=== PATIENT | female | born 1955 | race Caucasian/White ===

== ENCOUNTER → 2017-07-21 | Day surgery (SDC) | payer BC ==
[2017-07-20 12:34] VITALS: BMI 19.4
[~2017-07-21] MED LIST: Bupivacaine HCl 0.5%/Epinephrine 1:200,000/PF 30 ml Vial ONE; Bupivacaine PF 0.5% 30 ML VIAL ONE; CEFAZOLIN/Water 2 GM/20 ML SYRINGE ONE; Dexamethasone 20 MG/5 ML VIAL ONE; Fentanyl 100 MCG/2 ML VIAL ONE; Hydrocodone-Acetamin 15 ML UDCUP ONE; Lidocaine 1% PF 5 ML VIAL ONE; Midazolam HCl 2 mg/2 ml Vial ONE; Ondansetron HCl/PF 4 MG/2 ML Vial ONE; PROPOFOL 20 ML ONE; PROPOFOL 200 MG/20 ML VIAL ONE
--- NOTE | 2017-07-21 14:24 | EKG ---
Test Reason : PREOP Blood Pressure : / mmHG Vent. Rate : 063 BPM Atrial Rate : 063 BPM P-R Int : 140 ms QRS Dur : 096 ms QT Int : 460 ms P-R-T Axes : 079 036 063 degrees QTc Int : 470 ms Normal sinus rhythm Normal ECG No previous ECGs available Confirmed by JIGNESH AGUAYO ([id number]) on 07/21/2017 2:23:44 PM Referred By: NGUYỄN Confirmed By:JIGNESH AGUAYO
--- NOTE | 2017-07-21 16:58 | RAD ---
RIGHT WRIST INTRAOPERATIVE FLUOROSCOPY THREE VIEWS 07/21/17 HISTORY: Wrist fracture. FINDINGS/IMPRESSION: Intraoperative fluoroscopy was provided for internal fixation as performed by Dr. Ramos. Spot flu oroscopic images show volar compression plate to transfix the distal radius in anatomic alignment. Fluoro time = 12 seconds. POS: LEVI
--- NOTE | 2017-07-21 18:11 | OP ---
DATE OF PROCEDURE: 07/21/2017 OPERATION: Open reduction internal fixation of right distal radius fracture. PREOPERATIVE DIAGNOSIS: Right distal radius fracture. POSTOPERATIVE DIAGNOSIS: Right distal radius fracture. COMPLICATIONS: None. ESTIMATED BLOOD LOSS: Minimal. SURGEON: Dameon Ramos MD ANESTHESIA: General plus local. IMPLANTS: Synthes distal radius volar locking plate with multiple screws. INDICATIONS: Ms. Eid is a 62-year-old female who fell from a ladder. She fractured her distal ra dius. She was indicated for open reduction and internal fixation of the radius to reduce the fractur e into an anatomic position and provide anatomic healing. Risks have been reviewed including nonunio n, malunion, post-traumatic arthritis, hardware failure, and others. DESCRIPTION OF PROCEDURE: Ms. Eid was identified in the preoperative holding area. Her correct e xtremity was marked. She was carried to the operating room. She was positioned supine. General ane sthesia was induced. A multidisciplinary time-out was performed. The right upper extremity was prep ped and draped in sterile fashion. At this point, we began by a volar approach to the wrist. We dissected down through the subcutaneous tissues to the FCR tendon sheath, which was opened. We then incised the deep aspect of the tendon s anna marie. At this point, we cleared the pronator quadratus from the distal radius. We encountered the fracture site. It was reduced into an anatomic position. We took intraoperative x-ray. At this poi nt, we applied a 3-hole Synthes volar locking plate. We placed multiple locking and nonlocking screw s fixing the plate to the bone and holding our rigid position. At this point, we again took images. We then thoroughly irrigated with copious lavage. 2-0 Vicryl suture and destini were used for the s kin. A sterile dressing was applied. The patient was taken to the recovery room in good condition w ithout complication.
== END ==
LOC: SDC 10:29
PROVIDERS: ATTEND Orthopaedic Surgery
PROC: 0PSH04Z Reposition Right Radius with Internal Fixation Device, Open Approach (ICD-10-PCS; principal; 2017-07-21)
DX: S52.531A Colles' fracture of right radius, initial encounter for closed fracture (principal); E78.00 Pure hypercholesterolemia, unspecified; I10 Essential (primary) hypertension; N39.0 Urinary tract infection, site not specified; F17.210 Nicotine dependence, cigarettes, uncomplicated; Z79.82 Long term (current) use of aspirin; Z79.899 Other long term (current) drug therapy; Z88.2 Allergy status to sulfonamides; Z88.5 Allergy status to narcotic agent; Z88.8 Allergy status to other drugs, medicaments and biological substances
CPT/HCPCS: 76001; 93005; 93010; C1713; J0670; J1100; J2001; J2250; J2405; J2704; J3010; S0020

== ENCOUNTER 2019-10-02 12:30 | Inpatient (IN) | payer OTHER, SELFPAY ==
[2019-10-02] MEDS ORDERED: Magnesium 2 GM/50 ML BAG (IN WATER) ONE (13:07)
[2019-10-02 13:19] LABS: #Basophils 0.1 thou/uL (0.0-0.2); #Eosinphils 0.4 thou/uL (0.0-0.7); #Monocytes 0.2 thou/uL (0.11-0.59); #Neutrophils 8.9 thou/uL (1.40-6.50); %Basophils 0.7 % (0.0-1.0); %Eosinophils 3.7 % (0.0-10.0); %Lymphocytes 9.4 % (21.0-51.0); %Monocytes 1.4 % (0.0-10.0); %Neutrophils 84.7 % (42.0-75.0); Hemoglobin 13.4 g/dL (12.0-16.0); Mean Corpuscular HGB CONC 31.7 g/dL (32.0-36.0); Mean Corpuscular Hemoglobin 30.2 pg (27.0-31.0); Mean Corpuscular Volume 95.2 fL (78.0-98.0); Mean Platelet Volume 7.7 fL (7.4-10.4); Platelet Count 290 thou/uL (130-400); RBC Distribution Width 12.3 % (11.5-14.5); Red Blood Cell (RBC) Count 4.42 mill/uL (4.20-5.40); White Blood Cell (WBC) Count 10.5 thou/uL (4.8-10.8)
[2019-10-02 13:23] LABS: Actual Bicarbonate (HCO3a) 23.3 mEq/L (22-28); Analyzer IN Cardio ER; Base Excess (BEa) -1.7 mEq/L (-2.0 to +3.0); CO2 Tension 40.7 mmHg (35.0-45.0); Calcium, Ionized (arterial) 1.21 mmol/L (1.12-1.30); Carboxyhemoglobin (COHb) 1.1 gm% (0.0-3.0); Hemoglobin (Hb) 13.1 g/dL (12.0-16.0); O2 Tension (PaO2), arterial 73.1 mmHg (> 80.0); Potassium - ABG Lab 4.37 mmol/L (3.70-5.30); pH, Arterial 7.38 (7.35-7.45)
[2019-10-02 13:28] LABS: ALV-art Gradient 132.705 (0-20); Puncture Site LRA
[2019-10-02 13:48] LABS: ALT (SGPT) 13 U/L (8-55); AST (SGOT) 16 U/L (5-34); Albumin 4.4 g/dL (3.4-4.8); Alkaline Phosphatase 59 U/L (40-110); Anion Gap 13 mmol/L (10-20); BUN (Urea Nitrogen) 18 mg/dL (9.8-20.1); Bilirubin, Total Less than 0.2 mg/dL (0.2-1.2); Calc. Creatinine Clearance 0 mL/min (70-130); Calcium 9.1 mg/dL (7.8-10.44); Carbon Dioxide 27 mmol/L (23-31); Chloride 106 mmol/L (98-107); Estimated GFR-MDRD 80; Globulin 2.8 g/dL (2.4-3.5); Glucose 104 mg/dL (80-115); Potassium 4.6 mmol/L (3.5-5.1); Protein, Total 7.2 g/dL (6.0-8.3); Sodium 141 mmol/L (136-145)
--- NOTE | 2019-10-02 14:03 | RAD ---
Exam: Chest one view HISTORY:Shortness of breath. Comparison: 11/05/2010 FINDINGS: Cardiac silhouette: Normal Aorta: Slightly elongated Pulmonary vessels: Normal Costophrenic angles: Clear LUNGS: No masses or consolidation. Pneumothorax: None Osseous abnormalities: None IMPRESSION: No acute cardiopulmonary process.
--- NOTE | 2019-10-02 14:21 | PDOC.HHP ---
Hospitalist HPI - History of Present Illness Dyspnea History of Present Illness: PCP: Dr. Swain ([place], [place]) The patient is a 64-year-old female with a past medical history significant for COPD (on 2 L nasal cannula at home), hypertension, hyperlipidemia and depression presents to the ER via EMS for the above complaint. Patient reports worsening shortness of breath over the past 2 days. She reports that this morning she woke up and felt very short of breath. She reports an associated productive cough, thick yellow sputum. She denies any chest pain, heart palpitations, lower extremity swelling. She denies any known sick contacts, stating that she a homebody. She reports feeling constipated, stating that her last bowel movement was 3 days ago. She admits to passing flatus. Denies abdominal pain, vomiting, diarrhea. Denies any urinary symptoms. EMS was called. Upon arrival, she was found to be in respiratory distress with an O2 saturation in the 80s. She was placed on nonrebreather, given Solu-Medrol and 4 puffs from her MDI inhaler. ED Course: VITAL SIGNS TueOct 02, 2019 12:31 JOHNNY Almendarez Rachel Pulse: 107, O2 sat: 95 on (Non Rebreather), Time: 10/02/2019 12:31. VITAL SIGNS TueOct 02, 2019 12:40 JOHNNY Almendarez Rachel BP: 168/99, Pulse: 96, Resp: 24, Temp: 98.2, Time: 10/02/2019 12:40. VITAL SIGNS TueOct 02, 2019 13:56 JOHNNY Almendarez Rachel O2 sat: 98 on (2L Oxygen), Time: 10/02/2019 13:56. VITAL SIGNS TueOct 02, 2019 13:15 JOHNNY Almendarez Rachel O2 sat: 99 on (4L Oxygen), Time: 10/02/2019 13:15. VITAL SIGNS TueOct 02, 2019 14:00 JOHNNY Almendarez Rachel BP: 150/83 (Sitting), Pulse: 86, Resp: 21 (Non-Labored), Temp: 97.6 (Oral), Pain : 0, O2 sat: 98 on (2L Oxygen), Time: 10/02/2019 14:00. Levaquin in 5 % dextrose 750 mg IV Piggy Back Ordered 14:13 10/02/2019 DuoNeb 3 mL Nebulize Given 13:25 10/02/2019 magnesium sulfate in water 2 g IV Piggy Back Given 13:23 10/02/2019 Hospitalist ROS - Review of Systems Constitutional: denies: fever, chills Respiratory: reports: cough, shortness of breath, sputum Cardiovascular: denies: chest pain, palpitations, edema Gastrointestinal: reports: constipation. denies: nausea, vomiting, abdominal pain, diarrhea Genitourinary: denies: dysuria Skin: denies: rash, bruising Neurological: denies: weakness, numbness, change in speech, confusion All other systems reviewed; all pertinent +/- noted in HPI/Subj - Medication Medications: Lipitor TueOct 02, 2019 13:00 JOHNNY Almendarez Rachel tablet : Strength - 10 mg : ORAL Patient Dose: unk. aspirin oral TueOct 02, 2019 13:00 JOHNNY Almendarez Rachel tablet : Strength - 81 mg : ORAL Patient Dose: 1 tab(s) Oral once a day. Xanax TueOct 02, 2019 13:01 JOHNNY Almendarez Rachel tablet : Strength - 1 mg : ORAL Patient Dose: 1 tab(s) Oral 2 times a day. Lexapro TueOct 02, 2019 13:02 JOHNNY Almendarez Rachel tablet : Strength - 5 mg : ORAL Patient Dose: unk. amLODIPine TueOct 02, 2019 13:03 JOHNNY Almendarez Rachel tablet : Strength - 2.5 mg : ORAL Patient Dose: unk. Allergies: promethazine, prochloperazine, sulfa Hospitalist History - Past Medical History Source: patient, RN notes reviewed Other Medical History: MEDICAL HISTORY TueOct 02, 2019 12:51 JOHNNY Almendarez Rachel Past medical history includes history of hyperlipidemia, high cholesterol, Past medical history includes history of hypertension, which has been treated, Patient is compliant, Past medical history includes pulmonary disease, chronic obstructive pulmonary disease ARTHRITIS OF NECK - . verified 10/02/19. FEMALE SURGICAL HISTORY TueOct 02, 2019 12:51 JOHNNY Almendarez Rachel 3 L FOOT SURGERY, Surgical history of hysterectomy. verified 10/02/19. PSYCHIATRIC HISTORY TueOct 02, 2019 12:51 JOHNNY Almendarez Rachel Notes: DENIES AT THIS TIME. verified 10/02/19. SOCIAL HISTORY TueOct 02, 2019 12:51 JOHNNY Almendarez, Nury Patient denies alcohol use, Patient denies drug use, Patient currently uses tobacco, smokes cigarettes, daily, Patient has smoked for 30 years, Patient smokes 1 pack per day, Patient denies alcohol use, Patient denies drug use, Patient currently uses tobacco, smokes cigarettes, daily, Patient smokes less than 1/2 pack day. FAMILY HISTORY: Non contributory for cardiac - Exam General Appearance: NAD General - other findings: Somnolent, non toxic appearing Eye: anicteric sclera ENT: normocephalic atraumatic Neck: supple, no JVD, no lymphadenopathy Heart: RRR, no murmur, no gallops, no rubs, normal peripheral pulses, irregular Respiratory - other findings: diminished BLL, expiratory wheezes Gastrointestinal: soft, non-tender, normal bowel sounds, no bruit, no guarding, no rigidity, distended Extremities: no cyanosis, no edema Skin: negative: no rashes Neurological: normal sensation to touch, no weakness, no focal deficits Psychiatric: normal affect, A&O x 3 Hospitalist Results - Labs Result Diagrams: 10/02/19 13:00 10/02/19 13:00 Lab results: WBC 10.5 thou/uL (4.8-10.8) 10/02/19 13:00 Hgb 13.4 g/dL (12.0-16.0) 10/02/19 13:00 Hct 42.1 % (36.0-47.0) 10/02/19 13:00 MCV 95.2 fL (78.0-98.0) 10/02/19 13:00 Plt Count 290 thou/uL (130-400) 10/02/19 13:00 Neutrophils % 84.7 % (42.0-75.0) H 10/02/19 13:00 ABG pH 7.38 (7.35-7.45) 10/02/19 13:20 ABG pCO2 40.7 mmHg (35.0-45.0) 10/02/19 13:20 ABG pO2 73.1 mmHg (> 80.0) 10/02/19 13:20 Sodium 141 mmol/L (136-145) 10/02/19 13:00 Potassium 4.6 mmol/L (3.5-5.1) 10/02/19 13:00 Chloride 106 mmol/L (98-107) 10/02/19 13:00 Carbon Dioxide 27 mmol/L (23-31) 10/02/19 13:00 BUN 18 mg/dL (9.8-20.1) 10/02/19 13:00 Creatinine 0.73 mg/dL (0.6-1.1) 10/02/19 13:00 Glucose 104 mg/dL (80-115) 10/02/19 13:00 Calcium 9.1 mg/dL (7.8-10.44) 10/02/19 13:00 Total Bilirubin Less than 0.2 mg/dL (0.2-1.2) L 10/02/19 13:00 AST 16 U/L (5-34) 10/02/19 13:00 ALT 13 U/L (8-55) 10/02/19 13:00 Alkaline Phosphatase 59 U/L (40-110) 10/02/19 13:00 Serum Total Protein 7.2 g/dL (6.0-8.3) 10/02/19 13:00 Albumin 4.4 g/dL (3.4-4.8) 10/02/19 13:00 - EKG Interpretation EK lead EKG interpreted by Emergency Department Physician at time of study, 12 lead EKG shows normal sinus rhythm, Rate (beats per minute): 96, T waves normal , Howard normal. - Radiology Interpretation Chest x-ray Status: report reviewed by me Additional Comment: No acute cardiopulmonary process. Hospitalist H&P A/P - Problem (1) COPD exacerbation Code(s): J44.1 - CHRONIC OBSTRUCTIVE PULMONARY DISEASE W (ACUTE) EXACERBATION Status: Acute Assessment and Plan: Admit to the telemetry floor, inpatient status. Expected length of stay greater than 2 midnights. Patient presented hypertensive, tachypneic, tachycardic, and hypoxic with SPO2 in the 80s, afebrile per EMS. EKG normal sinus rhythm, no ST elevation. Checks x-ray negative for any acute cardiopulmonary process. pH 7.38, CO2 40.7, PO2 73.1, HCO3 23.3. Patient denies having any chest pain or LE swelling. Wells PE score 1.5, low risk. Symptoms improved with steroids, duo nebs, magnesium. On exam, patient speaking in complete sentences, 3 L nasal cannula with SPO2 mid 90s and normal pulse. We will continue Solu-Medrol, Levaquin, duo nebs. Will add as needed cough medicines. COVID preadmission screening pending. (2) Acute respiratory failure with hypoxia Code(s): J96.01 - ACUTE RESPIRATORY FAILURE WITH HYPOXIA Status: Acute Assessment and Plan: Likely secondary to problem #1. (3) Tobacco abuse Code(s): Z72.0 - TOBACCO USE Status: Chronic Assessment and Plan: Patient has half pack per day. Unwilling to quit. Will start NRT therapy. Office Engineer on tobacco cessation. (4) HTN (hypertension) Code(s): I10 - ESSENTIAL (PRIMARY) HYPERTENSION Status: Chronic Assessment and Plan: Patient presented hypertensive. We will start home dose of amlodipine when reconciled by nursing. We will continue to monitor BP. - Plan Plan: Lovenox for DVT prophylaxis. No GI prophylaxis. Full code. Designated medical decision-maker NANI ABDI, Relationship to patient , Phone number: [phone]. Discussed case with Dr. Gutierrez.
[2019-10-02] MEDS ORDERED: Bisacodyl 5 MG TAB PO PRN (14:41)
[2019-10-02] MEDS ORDERED: Acetaminophen 650 MG Suppository PR PRN (14:41)
[2019-10-02] MEDS ORDERED: Acetaminophen 325 MG TAB PO PRN (14:41)
[2019-10-02] MEDS ORDERED: Calcium Carbonate 500 MG ChewTAB PO PRN (14:41)
[2019-10-02] MEDS ORDERED: Senokot S 8.6-50 MG TAB PO PRN (14:41)
[2019-10-02] MEDS ORDERED: Ondansetron ODT 4 MG TAB PO PRN (14:41)
[2019-10-02] MEDS ORDERED: Ondansetron PF 4 MG/2 ML Vial IVP PRN (14:41)
--- NOTE | 2019-10-02 14:49 | PDOC.HHP ---
Hospitalist HPI - History of Present Illness dyspnea History of Present Illness: PCP: Dr. Swain ([place], [place]) The patient is a 64-year-old female ED Course: VITAL SIGNS TueOct 02, 2019 12:31 JOHNNY Almendarez Rachel Pulse: 107, O2 sat: 95 on (Non Rebreather), Time: 10/02/2019 12:31. VITAL SIGNS TueOct 02, 2019 12:40 JOHNNY Almendarez Rachel BP: 168/99, Pulse: 96, Resp: 24, Temp: 98.2, Time: 10/02/2019 12:40. VITAL SIGNS TueOct 02, 2019 13:56 JOHNNY Almendarez Rachel O2 sat: 98 on (2L Oxygen), Time: 10/02/2019 13:56. VITAL SIGNS TueOct 02, 2019 13:15 JOHNNY Almendarez Rachel O2 sat: 99 on (4L Oxygen), Time: 10/02/2019 13:15. VITAL SIGNS TueOct 02, 2019 14:00 JOHNNY Almendarez Rachel BP: 150/83 (Sitting), Pulse: 86, Resp: 21 (Non-Labored), Temp: 97.6 (Oral), Pain : 0, O2 sat: 98 on (2L Oxygen), Time: 10/02/2019 14:00. Medications administered: Levaquin in 5 % dextrose 750 mg IV Piggy Back Ordered 14:13 10/02/2019 DuoNeb 3 mL Nebulize Given 13:25 10/02/2019 magnesium sulfate in water 2 g IV Piggy Back Given 13:23 10/02/2019 Hospitalist History - Past Medical History Source: patient, RN notes reviewed Other Medical History: MEDICAL HISTORY TueOct 02, 2019 12:51 JOHNNY Almendarez Rachel Past medical history includes history of hyperlipidemia, high cholesterol, Past medical history includes history of hypertension, which has been treated, Patient is compliant, Past medical history includes pulmonary disease, chronic obstructive pulmonary disease ARTHRITIS OF NECK - . verified 10/02/19. FEMALE SURGICAL HISTORY TueOct 02, 2019 12:51 JOHNNY Almendarez Rachel 3 L FOOT SURGERY, Surgical history of hysterectomy. verified 10/02/19. PSYCHIATRIC HISTORY TueOct 02, 2019 12:51 JOHNNY Almendarez Rachel Notes: DENIES AT THIS TIME. verified 10/02/19. SOCIAL HISTORY TueOct 02, 2019 12:51 JOHNNY Almendarez, Nury Patient denies alcohol use, Patient denies drug use, Patient currently uses tobacco, smokes cigarettes, daily, Patient has smoked for 30 years, Patient smokes 1 pack per day, Patient denies alcohol use, Patient denies drug use, Patient currently uses tobacco, smokes cigarettes, daily, Patient smokes less than 1/2 pack day. FAMILY HISTORY Hospitalist Results - Labs Result Diagrams: 10/02/19 13:00 10/02/19 13:00 Lab results: WBC 10.5 thou/uL (4.8-10.8) 10/02/19 13:00 Hgb 13.4 g/dL (12.0-16.0) 10/02/19 13:00 Hct 42.1 % (36.0-47.0) 10/02/19 13:00 MCV 95.2 fL (78.0-98.0) 10/02/19 13:00 Plt Count 290 thou/uL (130-400) 10/02/19 13:00 Neutrophils % 84.7 % (42.0-75.0) H 10/02/19 13:00 ABG pH 7.38 (7.35-7.45) 10/02/19 13:20 ABG pCO2 40.7 mmHg (35.0-45.0) 10/02/19 13:20 ABG pO2 73.1 mmHg (> 80.0) 10/02/19 13:20 Sodium 141 mmol/L (136-145) 10/02/19 13:00 Potassium 4.6 mmol/L (3.5-5.1) 10/02/19 13:00 Chloride 106 mmol/L (98-107) 10/02/19 13:00 Carbon Dioxide 27 mmol/L (23-31) 10/02/19 13:00 BUN 18 mg/dL (9.8-20.1) 10/02/19 13:00 Creatinine 0.73 mg/dL (0.6-1.1) 10/02/19 13:00 Glucose 104 mg/dL (80-115) 10/02/19 13:00 Calcium 9.1 mg/dL (7.8-10.44) 10/02/19 13:00 Total Bilirubin Less than 0.2 mg/dL (0.2-1.2) L 10/02/19 13:00 AST 16 U/L (5-34) 10/02/19 13:00 ALT 13 U/L (8-55) 10/02/19 13:00 Alkaline Phosphatase 59 U/L (40-110) 10/02/19 13:00 Serum Total Protein 7.2 g/dL (6.0-8.3) 10/02/19 13:00 Albumin 4.4 g/dL (3.4-4.8) 10/02/19 13:00
[2019-10-02 15:08] LABS: SARS-CoV-2 NAA Rapid Test Not Detected (NotDetected)
[2019-10-02 15:08] LABS: Bacteria/HPF None Seen HPF (None Seen); Bilirubin Negative (Negative); Blood, Urine Negative (Negative); Clarity Clear (Clear); Glucose, Urine (Dipstick) Normal (Negative); Ketone, Urine Negative (Negative); Leukocyte Negative Leu/uL (Negative); Nitrite Negative (Negative); Protein, Urine (Dipstick) Negative (Neg-Trace); RBC/HPF 0-3 HPF (0-3); Specific Gravity, Urine 1.013 (1.002-1.036); Squamous Epithelial 0-3 HPF (0-3); Urobilinogen Normal mg/dL (Less than 2); WBC/HPF 0-3 HPF (0-3); pH, Urine 5.5 (5.0-9.0)
[2019-10-02 16:44] VITALS: BMI 17.9
[2019-10-02] MEDS: Nicotine 14 MG PATCH TD SCH (16:46)
[2019-10-02] MEDS: methylPREDNISolone Sod Succ 40 MG VIAL IVP SCH (17:23)
[2019-10-02] MEDS ORDERED: ALPRAZolam 1 MG TAB PO SCH (17:45)
[2019-10-02] MEDS: Guaifenesin DM 100-10/5 ML UDCUP PO PRN (19:24)
[2019-10-02] MEDS: ALPRAZolam 1 MG TAB PO SCH (20:41)
[2019-10-02] MEDS: Atorvastatin Calcium 40 MG TAB PO SCH (20:41)
[2019-10-02 21:47] LABS: Amphetamine Not Detected (NotDetected); Barbiturates Screen Not Detected (NotDetected); Benzodiazepine Screen Detected (NotDetected); Cocaine Metabolite Screen Not Detected (NotDetected); Medtox Control Line Valid? VALID (VALID); Medtox Reader # READER 4; Methadone Not Detected (NotDetected); Methamphetamine Not Detected (NotDetected); Opiate Screen Detected (NotDetected); Oxycodone Screen Not Detected (NotDetected); Phencyclidine (PCP) Not Detected (NotDetected); THC/Cannabinoid Screen Not Detected (NotDetected); Tricyclic Screen Not Detected (NotDetected)
[2019-10-02] MEDS: Benzonatate 100 MG CAP PO PRN (22:53)
--- NOTE | 2019-10-02 23:58 | CON ---
DATE OF CONSULTATION: 10/02/2019 TECHNICAL SOLUTIONS ENGINEER: Dr. uGtierrez from the Hospitalist Group. REASON FOR CONSULTATION: COPD exacerbation. HISTORY OF PRESENT ILLNESS: This patient is a 64-year-old female, who lives near [place], [place]. She has severe COPD by history. She is on home oxygen intermittently. She has had several hospitalizations in the last several months. Beforehand, she was using a hospital in [place]. She comes in with 2-day history of increasing shortness of breath. She is continuing to smoke at least a half pack cigarettes per day. She is using a Ventolin metered-dose inhaler at home. She also uses albuterol as needed. Her main complaint is shortness of breath. She did not have much in the way of cough. PAST MEDICAL HISTORY: 1. Chronic obstructive pulmonary disease. 2. Hyperlipidemia. 3. Hypertension. 4. Osteoarthritis. PAST SURGICAL HISTORY: 1. Left foot surgery. 2. Hysterectomy. SOCIAL HISTORY: Has smoked at least a pack per day since she was a teenager. Says she has cut to half pack per day. Does not consume alcohol. Does not use illicit drugs. OUTPATIENT MEDICATIONS: 1. Soma. 2. Albuterol. 3. Escitalopram. 4. Atorvastatin. 5. Norvasc. 6. Oxybutynin. 7. Hydrocodone/acetaminophen. 8. Xanax. 9. Aspirin. REVIEW OF SYSTEMS: No fever, chills, nausea, vomiting, hematemesis, melena, hematochezia, hematuria, or dysuria. PHYSICAL EXAMINATION: VITAL SIGNS: Temperature 98.2, pulse 107, respirations 24, O2 saturation 94% on 3 L, and blood pressure 148/83. GENERAL: She is a 64-year-old female, who appears at least 20 years older than her stated age. HEENT: Pupils reactive. Sclerae anicteric. Oropharynx clear. NECK: No adenopathy or JVD. LUNGS: She has mild expiratory wheezing. She is not using any accessory muscles of respiration. CARDIAC: S1 and S2, regular without audible murmur. ABDOMEN: Soft and nontender. EXTREMITIES: No clubbing, cyanosis, or edema. She has severe muscle wasting throughout. LABORATORY DATA: White blood cell count 10.5, hematocrit 42.1, and platelet count 290. PH 7.38, pCO2 of 40, pO2 of 73, that was on 3 L. Sodium 141, potassium 4.6, chloride 106, CO2 of 27, BUN 18, creatinine 0.7, and glucose 104. COVID test was negative. Chest x-ray shows hyperinflation without evidence of mass, effusion, or infiltrate. ASSESSMENT: 1. Chronic obstructive pulmonary disease with exacerbation. 2. Chronic hypoxemic respiratory failure. 3. No evidence of hypercapnia. PLAN: The current plan of antibiotics, nebulization treatments, and IV steroids is appropriate. The patient has been cautioned to quit smoking. She needs to follow up with a supervisor pit and auxiliaries as an outpatient and have PFTs to further characterize the severity of her illness. She needs to continue low-flow oxygen to keep O2 sats around 90% to 92%. The patient was warned that she will not improve if she continues to smoke. Thank you for the referral. Job ID: [id number]
[2019-10-03] MEDS: methylPREDNISolone Sod Succ 40 MG VIAL IVP SCH ×5 (00:05→20:36)
[2019-10-03] MEDS: Guaifenesin DM 100-10/5 ML UDCUP PO PRN (04:05)
[2019-10-03 04:25] LABS: #Lymphocytes 0.7 thou/uL (1.20-3.40); #Monocytes 0.2 thou/uL (0.11-0.59); #Neutrophils 11.8 thou/uL (1.40-6.50); %Lymphocytes 5.7 % (21.0-51.0); %Monocytes 1.2 % (0.0-10.0); %Neutrophils 93.1 % (42.0-75.0); Mean Corpuscular HGB CONC 31.5 g/dL (32.0-36.0); Mean Corpuscular Hemoglobin 29.7 pg (27.0-31.0); Mean Corpuscular Volume 94.2 fL (78.0-98.0); Platelet Count 289 thou/uL (130-400); RBC Distribution Width 12.5 % (11.5-14.5); Red Blood Cell (RBC) Count 4.04 mill/uL (4.20-5.40); White Blood Cell (WBC) Count 12.7 thou/uL (4.8-10.8)
[2019-10-03 04:37] LABS: Anion Gap 13 mmol/L (10-20); BUN (Urea Nitrogen) 23 mg/dL (9.8-20.1); Calc. Creatinine Clearance 59 mL/min (70-130); Calcium 8.8 mg/dL (7.8-10.44); Carbon Dioxide 21 mmol/L (23-31); Chloride 108 mmol/L (98-107); Estimated GFR-MDRD 70; Glucose 223 mg/dL (80-115); Potassium 4.3 mmol/L (3.5-5.1); Sodium 138 mmol/L (136-145)
[2019-10-03] MEDS: Benzonatate 100 MG CAP PO PRN ×2 (05:10→14:46)
--- NOTE | 2019-10-03 09:49 | PRG ---
DATE OF SERVICE: 10/03/2019 SUBJECTIVE: She feels better, has no complaints of better breathing. OBJECTIVE: VITAL SIGNS: Temperature 98.7, pulse , respirations 20, and O2 saturation 97% on 3 L. HEENT: Clear. NECK: No JVD. LUNGS: No audible wheezing currently. CARDIAC: S1 and S2. Regular. ABDOMEN: Soft. EXTREMITIES: No edema. LABORATORY DATA: White blood cell count 12.7, hematocrit 38, and platelet count 289. Sodium 138, potassium 4.3, chloride 108, CO2 of 21, BUN 23, creatinine 0.8, glucose 223. ASSESSMENT: 1. Chronic obstructive pulmonary disease with exacerbation. 2. Tobacco abuse. PLAN: Steroids, nebs, antibiotics, and smoking cessation. Likely stable for discharge by tomorrow. Job ID: [id number]
[2019-10-03] MEDS: Oxybutynin ER 5 MG TAB PO SCH (09:51)
[2019-10-03] MEDS: Escitalopram Oxalate 20 mg Tablet PO SCH (09:51)
[2019-10-03] MEDS: Amlodipine 10 MG TAB PO SCH (09:51)
[2019-10-03] MEDS: ALPRAZolam 1 MG TAB PO SCH ×2 (09:51→20:36)
[2019-10-03] MEDS: Enoxaparin Sodium 40 MG/0.4 ML SYRINGE SC SCH (09:51)
--- NOTE | 2019-10-03 13:36 | PDOC.HOSPP ---
- Subjective Encounter Date: 10/03/19 Subjective: The patient is feeling better today. Her respiratory status is improving. - Objective Vital Signs & Weight: Vital Signs (12 hours) Temp Pulse Resp BP BP Pulse Ox 10/03/19 11:39 88 18 104/62 94 L 10/03/19 09:51 94 128/66 10/03/19 09:46 98.6 F 99 20 128/66 94 L 10/03/19 07:25 97 10/03/19 07:22 98 20 97 10/03/19 04:18 110 H 16 100 10/03/19 03:42 98.7 F 86 20 101/66 96 Weight Weight 118 lb 5 oz I&O: 10/02/19 10/03/19 10/04/19 06:59 06:59 06:59 Intake Total 480 550 Output Total 400 Balance 480 150 Result Diagrams: 10/03/19 03:28 10/03/19 03:28 Hospitalist ROS - Medication Medications: Active Medications Generic Name Dose Route Start Last Admin Trade Name Freq PRN Reason Stop Dose Admin Albuterol/Ipratropium 3 ml 10/02/19 19:00 10/03/19 07:22 Duoneb NEB 3 ml [id number] ELISABETH Administration Albuterol/Ipratropium 3 ml 10/02/19 14:38 10/03/19 04:18 Duoneb NEB 3 ml Q4H PRN Administration SOB &/or Wheezing Alprazolam 1 mg 10/02/19 21:00 10/03/19 09:51 Xanax PO 1 mg BID ELISABETH Administration Amlodipine Besylate 10 mg 10/03/19 09:00 10/03/19 09:51 Norvasc PO 10 mg DAILY ELISABETH Administration Atorvastatin Calcium 40 mg 10/02/19 21:00 10/02/19 20:41 Lipitor PO 40 mg HS ELISABETH Administration Benzonatate 100 mg 10/02/19 14:47 10/03/19 05:10 Tessalon PO 100 mg TIDPRN PRN Administration Cough Bisacodyl 10 mg 10/02/19 14:41 10/02/19 21:22 Dulcolax PO 10 mg DAILYPRN PRN Administration Constipation Enoxaparin Sodium 40 mg 10/03/19 09:00 10/03/19 09:51 Lovenox SC 40 mg 0900 ELISABETH Administration Escitalopram Oxalate 20 mg 10/03/19 09:00 10/03/19 09:51 Lexapro PO 20 mg DAILY ELISABETH Administration Guaifenesin/Dextromethorphan 15 ml 10/02/19 14:41 10/03/19 04:05 Robitussin Dm PO 15 ml Q4H PRN Administration Cough Methylprednisolone Sodium Succinate 40 mg 10/02/19 18:00 10/03/19 11:57 Solu-Medrol IVP 40 mg Q6HR ELISABETH Administration Nicotine 14 mg 10/02/19 15:00 10/02/19 16:46 Nicoderm Patch TD Not Given Q24HR ELISABETH Oxybutynin Chloride 10 mg 10/03/19 09:00 10/03/19 09:51 Ditropan Xl PO 10 mg DAILY ELISABETH Administration Senna/Docusate Sodium 2 tab 10/02/19 14:41 10/02/19 17:23 Senokot S PO 2 tab BID PRN Administration Constipation - Exam General Appearance: awake alert ENT: normocephalic atraumatic Neck: supple, no JVD Heart: RRR Respiratory: normal chest expansion, no tachypnea Neurological: cranial nerve grossly intact, no focal deficits Hosp A/P (1) Acute respiratory failure with hypoxia Code(s): J96.01 - ACUTE RESPIRATORY FAILURE WITH HYPOXIA Status: Acute (2) COPD exacerbation Code(s): J44.1 - CHRONIC OBSTRUCTIVE PULMONARY DISEASE W (ACUTE) EXACERBATION Status: Acute (3) HTN (hypertension) Code(s): I10 - ESSENTIAL (PRIMARY) HYPERTENSION Status: Chronic (4) Tobacco abuse Code(s): Z72.0 - TOBACCO USE Status: Chronic - Plan Clinically improving. Continue nebulized bronchodilator treatments, antibiotics, corticosteroids. Continue supplemental oxygen as needed. Lovenox for DVT prophylaxis.
[2019-10-03] MEDS: Nicotine 14 MG PATCH TD SCH (14:46)
[2019-10-03] MEDS: Atorvastatin Calcium 40 MG TAB PO SCH (20:36)
[2019-10-04] MEDS: Benzonatate 100 MG CAP PO PRN (00:16)
[2019-10-04] MEDS: methylPREDNISolone Sod Succ 40 MG VIAL IVP SCH ×3 (03:42→14:48)
--- NOTE | 2019-10-04 10:09 | PRG ---
DATE OF SERVICE: 10/04/2019 SUBJECTIVE: The patient is doing reasonably well without complaint. She is little scared to go home. OBJECTIVE: VITAL SIGNS: Temperature 98.5, pulse 80, respirations 16, O2 sat 93% on room air, blood pressure 107/70. HEENT: Unremarkable. NECK: No adenopathy or JVD. CHEST: Clear without wheezing. CARDIAC: S1, S2. Regular. ABDOMEN: Soft. EXTREMITIES: No edema. ASSESSMENT: Chronic obstructive pulmonary disease exacerbation. PLAN: Would stop antibiotics after 7 days and wean steroids over about 2 weeks. She should continue DuoNeb at home. Additionally, I would put her on either Dulera or Symbicort with that. She has been cautioned not to smoke. She can follow up in my office in about 4 to 6 weeks. Job ID: [id number]
[2019-10-04 10:26] LABS: #Lymphocytes 0.6 thou/uL (1.20-3.40); #Monocytes 0.3 thou/uL (0.11-0.59); #Neutrophils 15.5 thou/uL (1.40-6.50); %Eosinophils 0.2 % (0.0-10.0); %Lymphocytes 3.5 % (21.0-51.0); %Monocytes 1.6 % (0.0-10.0); %Neutrophils 94.7 % (42.0-75.0); Hemoglobin 12.1 g/dL (12.0-16.0); Mean Corpuscular HGB CONC 31.5 g/dL (32.0-36.0); Mean Corpuscular Hemoglobin 29.8 pg (27.0-31.0); Mean Corpuscular Volume 94.8 fL (78.0-98.0); Mean Platelet Volume 8.1 fL (7.4-10.4); Platelet Count 290 thou/uL (130-400); RBC Distribution Width 12.5 % (11.5-14.5); Red Blood Cell (RBC) Count 4.07 mill/uL (4.20-5.40); White Blood Cell (WBC) Count 16.4 thou/uL (4.8-10.8)
[2019-10-04] MEDS: Amlodipine 10 MG TAB PO SCH (10:35)
[2019-10-04] MEDS: Escitalopram Oxalate 20 mg Tablet PO SCH (10:36)
[2019-10-04] MEDS: ALPRAZolam 1 MG TAB PO SCH (10:37)
[2019-10-04] MEDS: Oxybutynin ER 5 MG TAB PO SCH (10:37)
[2019-10-04 10:39] LABS: Anion Gap 15 mmol/L (10-20); BUN (Urea Nitrogen) 28 mg/dL (9.8-20.1); Calc. Creatinine Clearance 65 mL/min (70-130); Calcium 9.1 mg/dL (7.8-10.44); Carbon Dioxide 24 mmol/L (23-31); Chloride 103 mmol/L (98-107); Estimated GFR-MDRD 79; Glucose 226 mg/dL (80-115); Sodium 138 mmol/L (136-145)
[2019-10-04] MEDS: Enoxaparin Sodium 40 MG/0.4 ML SYRINGE SC SCH (10:41)
[2019-10-04 18:26] VITALS: BP 106/73; TEMP 98.3
[2019-10-04] MEDS: Nicotine 14 MG PATCH TD SCH (18:36)
== END 2019-10-04 19:18 | disposition home or self-care (01) | DRG 189 ==
LOC: ERS 12:30 → 2NO 16:20
PROVIDERS: ADMIT Internal Medicine; ATTEND Internal Medicine
DX: J96.01 Acute respiratory failure with hypoxia (principal); J44.1 Chronic obstructive pulmonary disease with (acute) exacerbation; Z20.828 Contact with and (suspected) exposure to other viral communicable diseases; I10 Essential (primary) hypertension; E78.5 Hyperlipidemia, unspecified; F32.9 Major depressive disorder, single episode, unspecified; M19.90 Unspecified osteoarthritis, unspecified site; F17.210 Nicotine dependence, cigarettes, uncomplicated; Z88.2 Allergy status to sulfonamides; Z88.8 Allergy status to other drugs, medicaments and biological substances; Z79.82 Long term (current) use of aspirin; Z90.710 Acquired absence of both cervix and uterus
CPT/HCPCS: 36415; 71045; 80048; 80053; 80306; 81001; 82805; 84484; 85025; 90471; 90732; 93005; 94640; 96365; 96366; 96367; G0009; J1650; J1956; J2920; J3475; J7620; U0002

== ENCOUNTER 2019-11-25 19:05 | Emergency (ER) | payer OTHER, SELFPAY ==
[2019-11-25] MEDS ORDERED: Albuterol 200 PUFF (6.7GM INHALER) ONE (19:43)
--- NOTE | 2019-11-25 19:55 | RAD ---
Portable frontal chest radiograph: 11/25/2019 COMPARISON: 10/02/2019 HISTORY: Shortness of breath and hypoxia FINDINGS: There is increased linear interstitial density with pulmonary hyperinflation, consistent wi th COPD. There is a questionable small nodule versus confluent of osseous shadows within the left upper lobe region projecting between the fourth and fifth posterior left ribs. No pneumothorax or pleural fluid is seen and there is no focal consolidation or alveolar edema. IMPRESSION: Interstitial prominence and pulmonary hyperinflation suggesting COPD. Questionable nodule versus artifact within the left upper lobe for which follow-up PA and lateral imaging of the chest is advised. CODE T Code lung nodule
[2019-11-25 19:56] LABS: #Eosinphils 0.6 thou/uL (0.0-0.7); #Lymphocytes 1.3 thou/uL (1.20-3.40); #Monocytes 0.2 thou/uL (0.11-0.59); #Neutrophils 6.8 thou/uL (1.40-6.50); %Basophils 0.5 % (0.0-1.0); %Eosinophils 6.4 % (0.0-10.0); %Lymphocytes 14.1 % (21.0-51.0); %Monocytes 2.5 % (0.0-10.0); %Neutrophils 76.4 % (42.0-75.0); Hemoglobin 14.1 g/dL (12.0-16.0); Mean Corpuscular HGB CONC 33.6 g/dL (32.0-36.0); Mean Corpuscular Hemoglobin 31.1 pg (27.0-31.0); Mean Corpuscular Volume 92.7 fL (78.0-98.0); Mean Platelet Volume 7.7 fL (7.4-10.4); Platelet Count 268 thou/uL (130-400); RBC Distribution Width 12.7 % (11.5-14.5); Red Blood Cell (RBC) Count 4.54 mill/uL (4.20-5.40); White Blood Cell (WBC) Count 8.9 thou/uL (4.8-10.8)
[2019-11-25 20:08] LABS: ALT (SGPT) 12 U/L (8-55); AST (SGOT) 15 U/L (5-34); Albumin 4.2 g/dL (3.4-4.8); Alkaline Phosphatase 61 U/L (40-110); Anion Gap 12 mmol/L (10-20); BUN (Urea Nitrogen) 17 mg/dL (9.8-20.1); Bilirubin, Total 0.2 mg/dL (0.2-1.2); Calc. Creatinine Clearance 0 mL/min (70-130); Calcium 9.2 mg/dL (7.8-10.44); Carbon Dioxide 26 mmol/L (23-31); Chloride 108 mmol/L (98-107); Estimated GFR-MDRD 90; Globulin 2.9 g/dL (2.4-3.5); Glucose 117 mg/dL (80-115); Potassium 3.9 mmol/L (3.5-5.1); Protein, Total 7.1 g/dL (6.0-8.3); Sodium 142 mmol/L (136-145)
[2019-11-25] MEDS ORDERED: Lorazepam 2 MG/ML VIAL ONE (21:17)
[2019-11-26 11:05] LABS: SARS-CoV-2 MS2 Positive; SARS-CoV-2 N Gene Negative; SARS-CoV-2 S Gene Negative; SARS-CoV-2 by NAA Not Detected (NotDetected); SARS-CoV-2 orf1ab Negative
== END 2019-11-25 21:12 | disposition home or self-care (01) ==
LOC: ERS 19:05
DX: J44.1 Chronic obstructive pulmonary disease with (acute) exacerbation (principal); E78.5 Hyperlipidemia, unspecified; E78.00 Pure hypercholesterolemia, unspecified; I10 Essential (primary) hypertension; M19.90 Unspecified osteoarthritis, unspecified site; Z87.891 Personal history of nicotine dependence; Z79.82 Long term (current) use of aspirin; Z79.899 Other long term (current) drug therapy
CPT/HCPCS: 36415; 71045; 80053; 83605; 83880; 85025; 87635; 93005; 94760; 96374; J2060; U0003

== ENCOUNTER 2020-01-19 14:42 | Emergency (ER) | payer SELFPAY ==
[2020-01-19 15:24] LABS: #Basophils 0.1 thou/uL (0.0-0.2); #Eosinphils 0.2 thou/uL (0.0-0.7); #Lymphocytes 1.4 thou/uL (1.20-3.40); #Monocytes 0.2 thou/uL (0.11-0.59); %Basophils 0.8 % (0.0-1.0); %Eosinophils 2.7 % (0.0-10.0); %Lymphocytes 17.3 % (21.0-51.0); %Monocytes 2.9 % (0.0-10.0); %Neutrophils 76.3 % (42.0-75.0); Mean Corpuscular HGB CONC 32.8 g/dL (32.0-36.0); Mean Corpuscular Hemoglobin 30.1 pg (27.0-31.0); Mean Corpuscular Volume 91.8 fL (78.0-98.0); Platelet Count 279 thou/uL (130-400); RBC Distribution Width 13.4 % (11.5-14.5); Red Blood Cell (RBC) Count 4.32 mill/uL (4.20-5.40); White Blood Cell (WBC) Count 7.8 thou/uL (4.8-10.8)
[2020-01-19 15:50] LABS: ALT (SGPT) 18 U/L (8-55); AST (SGOT) 14 U/L (5-34); Albumin 4.3 g/dL (3.4-4.8); Alkaline Phosphatase 51 U/L (40-110); Anion Gap 16 mmol/L (10-20); BUN (Urea Nitrogen) 13 mg/dL (9.8-20.1); Bilirubin, Total 0.3 mg/dL (0.2-1.2); Calc. Creatinine Clearance 0 mL/min (70-130); Calcium 8.7 mg/dL (7.8-10.44); Carbon Dioxide 24 mmol/L (23-31); Chloride 108 mmol/L (98-107); Globulin 2.7 g/dL (2.4-3.5); Glucose 102 mg/dL (80-115); Potassium 3.7 mmol/L (3.5-5.1); Sodium 144 mmol/L (136-145)
--- NOTE | 2020-01-19 16:11 | RAD ---
PORTABLE CHEST ONE VIEW: 01/19/20 at 3:27 p.m. HISTORY: Shortness of breath, COPD. FINDINGS: Comparison made to exam of 01/11/20. The heart size is normal. The aorta is tortuous. The lungs are well expanded without lobar consolidat ion, pneumothoraces, or pleural effusions. IMPRESSION: No acute process. POS: OFF
[2020-01-19] MEDS ORDERED: HYDROcodone/Acetaminophen 5/325 mg Tablet ONE (19:10)
== END 2020-01-19 19:24 | disposition home or self-care (01) ==
LOC: ERS 14:42
DX: J44.1 Chronic obstructive pulmonary disease with (acute) exacerbation (principal); Z79.899 Other long term (current) drug therapy; Z79.82 Long term (current) use of aspirin; D64.9 Anemia, unspecified; I10 Essential (primary) hypertension; G43.909 Migraine, unspecified, not intractable, without status migrainosus; F17.210 Nicotine dependence, cigarettes, uncomplicated
CPT/HCPCS: 71045; 80053; 84484; 85025; 93005; 94760

== ENCOUNTER 2020-04-30 23:20 | Emergency (ER) | payer SELFPAY ==
[2020-05-01 00:24] LABS: #Eosinphils 0.2 thou/uL (0.0-0.7); #Lymphocytes 1.2 thou/uL (1.20-3.40); #Monocytes 0.2 thou/uL (0.11-0.59); #Neutrophils 8.4 thou/uL (1.40-6.50); %Basophils 0.4 % (0.0-1.0); %Eosinophils 2.2 % (0.0-10.0); %Lymphocytes 12.1 % (21.0-51.0); %Monocytes 1.9 % (0.0-10.0); %Neutrophils 83.4 % (42.0-75.0); Hemoglobin 13.7 g/dL (12.0-16.0); Mean Corpuscular HGB CONC 31.9 g/dL (32.0-36.0); Mean Corpuscular Hemoglobin 29.5 pg (27.0-31.0); Mean Corpuscular Volume 92.3 fL (78.0-98.0); Mean Platelet Volume 7.1 fL (7.4-10.4); Platelet Count 327 thou/uL (130-400); RBC Distribution Width 13.3 % (11.5-14.5); Red Blood Cell (RBC) Count 4.66 mill/uL (4.20-5.40); White Blood Cell (WBC) Count 10.1 thou/uL (4.8-10.8)
[2020-05-01 00:47] LABS: ALT (SGPT) 15 U/L (8-55); AST (SGOT) 17 U/L (5-34); Albumin 4.2 g/dL (3.4-4.8); Alkaline Phosphatase 52 U/L (40-110); Anion Gap 17 mmol/L (10-20); BUN (Urea Nitrogen) 18 mg/dL (9.8-20.1); Bilirubin, Total Less than 0.2 mg/dL (0.2-1.2); Calc. Creatinine Clearance 0 mL/min (70-130); Calcium 9.1 mg/dL (7.8-10.44); Carbon Dioxide 21 mmol/L (23-31); Chloride 109 mmol/L (98-107); Globulin 3.1 g/dL (2.4-3.5); Glucose 100 mg/dL (80-115); Potassium 3.9 mmol/L (3.5-5.1); Protein, Total 7.3 g/dL (5.8-8.1); Sodium 143 mmol/L (136-145)
== END 2020-05-01 02:00 | disposition home or self-care (01) ==
LOC: ERS 23:20
DX: J44.1 Chronic obstructive pulmonary disease with (acute) exacerbation (principal); I10 Essential (primary) hypertension; G43.909 Migraine, unspecified, not intractable, without status migrainosus; F17.210 Nicotine dependence, cigarettes, uncomplicated; Z79.82 Long term (current) use of aspirin
CPT/HCPCS: 36415; 71045; 80053; 83880; 84484; 85025; 93005